=== PATIENT | male | born 1990 | race Caucasian/White ===

== ENCOUNTER 2019-02-28 12:02 | Emergency (ER) | payer OTHER ==
[~2019-02-28] VITALS: Ht 182.9 cm; Wt 83.9 kg
[2019-02-28] MEDS ORDERED: FLUORESCEIN OPHTHALMIC 1 MG STRIP ONE (12:38)
[2019-02-28] MEDS ORDERED: PROPARACAINE OPHTH 0.5%, 15ML ONE (12:38)
[2019-02-28 12:43] VITALS: BP 132/78
--- NOTE | 2019-02-28 12:45 | NUR ---
FIRST CONTACT WITH PT. SENT BY C/O RT BLOOM & RASH ON FOREHEAD AFTER AMOXICILLIN FOR EAR INFECTION 4-5 DAYS AGO- DENIES PAIN/ITCHING, OD SWELLING SINCE YESTERDAY- DENIES PAIN, LIVES IN [place]. PT'S AOX4. RESPS EVEN AND UNLABORED. BP/SPO2 MONITORS IN PLACE. CALL LIGHT WITHIN REACH. EDMD AT BEDSIDE TO EVALUATE AT THIS TIME.
--- NOTE | 2019-02-28 13:25 | NUR ---
Patient given discharge instructions and they have confirmed that they understand the instructions. Patient ambulatory with steady gait.
== END 2019-02-28 13:26 | disposition home or self-care (01) ==
LOC: ED 13:20
DX: B02.9 Zoster without complications (principal)
CPT/HCPCS: 99283